=== PATIENT | female | born 1970 | race Caucasian/White ===

== ENCOUNTER → 2020-12-06 | Outpatient (CLI) | payer MEDICARE ==
[~2020-12-06] MED LIST: AMLODIPINE BESY10 MG PO; CYCLOBENZAPRINE10 MG PO; ISOSORBIDE MONO60 MG PO; LIPITOR TAB 2020 MG PO; NITROSTAT 0.40.4 MG SL; ST. JOSEPH ASPI81 M1 PO; SYNTHROID75 MCG PO; TOPAMAX 100 MG100 MG PO; TOPROL XL 25 MG25 MG PO; VENTOLIN HFA 66.7 GM INH
== END ==
LOC: HEART 5 07:59
DX: R94.31 Abnormal electrocardiogram [ECG] [EKG] (principal); R94.39 Abnormal result of other cardiovascular function study; R07.9 Chest pain, unspecified; I34.0 Nonrheumatic mitral (valve) insufficiency; I51.7 Cardiomegaly
CPT/HCPCS: 78452; 93306; A9502; J2785

== ENCOUNTER → 2020-12-26 | Outpatient (CLI) | payer MEDICARE ==
[2020-12-26 09:01] LABS: HEMOGLOBIN 14.6 gm/dl (12.3-15.3); RED BLOOD COUNT 4.47 M/UL (4.00-5.10); WHITE BLOOD COUNT 9.6 K/UL (4.5-11.0)
[2020-12-26 09:16] LABS: BUN/CREATININE RATIO 17 (0-10)
== END ==
LOC: LAB 08:20
PROVIDERS: Internal Medicine Interventional Cardiology
DX: I10 Essential (primary) hypertension (principal); R00.2 Palpitations; R94.39 Abnormal result of other cardiovascular function study; R07.9 Chest pain, unspecified; R94.31 Abnormal electrocardiogram [ECG] [EKG]
CPT/HCPCS: 36415; 80048; 85025; 85610; 85730; 93005

== ENCOUNTER → 2020-12-28 | Outpatient (CLI) | payer MEDICARE | LOC: CATH 07:26 | DX: I25.118 Atherosclerotic heart disease of native coronary artery with other forms of angina pectoris (principal); I25.84 Coronary atherosclerosis due to calcified coronary lesion; I10 Essential (primary) hypertension; E78.5 Hyperlipidemia, unspecified; Z79.82 Long term (current) use of aspirin; Z87.891 Personal history of nicotine dependence; Z79.899 Other long term (current) drug therapy; Z82.49 Family history of ischemic heart disease and other diseases of the circulatory system | CPT/HCPCS: 99152; 99153; C1769; C1887; C1894; J0153; J1644; J2250; J3010; J7030; Q9967 ==